=== PATIENT | male | born 1965 | race Caucasian/White ===

== ENCOUNTER 2017-02-02 21:34 | Emergency (ER) | payer OTHER ==
[~2017-02-02] VITALS: Ht 172.7 cm; Wt 97.7 kg
[2017-02-02] MEDS ORDERED: PERID15L MM (21:50)
[2017-02-02] MEDS ORDERED: AMOX125S7 PO (21:50)
[2017-02-02] MEDS ORDERED: IBUP-2070 PO (21:50)
[2017-02-02] MEDS ORDERED: CLINDAMYCIN 600 MG/D5% WATER 50 ML IV ONE (23:30)
[2017-02-03 00:57] VITALS: BP 129/86
== END 2017-02-03 01:04 | disposition home or self-care (01) ==
LOC: EMS 21:36
DX: K04.7 Periapical abscess without sinus (principal)
CPT/HCPCS: 96365; 99284; J3490